=== PATIENT | female | born 1990 | race Caucasian/White ===

== ENCOUNTER 2018-09-02 18:00 | Emergency (ER) | payer MEDICAID ==
[~2018-09-02] VITALS: Ht 162.6 cm; Wt 88.2 kg
[~2018-09-02 18:00] MED LIST: FOLI-49 PO; IBUP-1542 PO; PRENAT PO
[2018-09-02 18:45] VITALS: Ht 162.6 cm; Wt 88.2 kg
--- NOTE | 2018-09-02 22:03 | ERD ---
ER Documentation Chief Complaint Chief Complaint vag bleed since sunday LMP 07/28/18. +abd cramping. HPI Patient is a 25-year-old female, G4, P3, who presents the ER for concerns of vaginal bleeding which started yesterday. Patient states she has pain bleeding only when wiping. Patient denies any blood clot passage. Patient does report mild pelvic pain. Patient denies any dizziness or lightheadedness. Patient denies any fevers or chills. Patient denies any urinary symptoms. Patient denies any nausea or vomiting. Patient states her last menstrual period was on 07-28-18. Patient's DRAW[employer] IN [employer]INE is at the [facility]/ [facility] All systems reviewed and are negative except as per history of present illness. Medications Home Meds Active Scripts Cephalexin* (Keflex*) 500 Mg Capsule, 500 MG PO TID for 7 Days, CAP Prov:DENIS ARMANDO PA-C 09/02/18 Ibuprofen* (Ibuprofen*) 600 Mg Tab, 600 MG PO Q6, #20 1 Refill Prov:HARSHAL ANDRES MD 04/03/15 Reported Medications Folic Acid* (Folic Acid*) 1 Mg Tablet, 1 MG PO DAILY, TAB 03/31/15 Multivit/Min/Fol Ac/Iron/Pren* ( S*) 1 Tab Tab, 1 TAB PO DAILY, TAB 03/31/15 Allergies Allergies: Coded Allergies: No Known Allergy (Verified , 09/10/13) PMhx/Soc History of Surgery: No Anesthesia Reaction: No Hx Neurological Disorder: No Hx Respiratory Disorders: No Hx Cardiac Disorders: No Hx Psychiatric Problems: No Hx Miscellaneous Medical Probl: Yes Hx Alcohol Use: No Hx Substance Use: No Hx Tobacco Use: No Smoking Status: Never smoker FmHx Family History: No diabetes Physical Exam Vitals Vital Signs Date Temp Pulse Resp B/P (MAP) Pulse Ox O2 O2 Flow FiO2 Time Delivery Rate 09/02/18 98.9 77 18 127/64 100 18:45 (85) Physical Exam GENERAL: Well-developed, well-nourished female. Appears in no acute distress. HEAD: Normocephalic, atraumatic. EYES: Pupils are equally reactive bilaterally. EOMs grossly intact. No conjunctival erythema. NECK: Supple. No meningismus. Normal range of motion of the neck. LUNG: Clear to auscultation bilaterally. No rhonchi, wheezing, rales or coarse breath sounds. HEART: Regular rate and rhythm. No murmurs, rubs or gallops. ABDOMEN: Soft, and nondistended. Minimally tender to palpation in the suprapubic region. Positive bowel sounds in all four quadrants. No rebound tenderness, no guarding. (-) McBurney's point tenderness. No CVA tenderness. EXTREMITIES: Equal pulses bilaterally. No peripheral clubbing, cyanosis or edema. No unilateral leg swelling. NEUROLOGIC: Alert and oriented. Moving all four extremities without any difficulty. Normal speech. Steady gait. SKIN: Normal color. Warm and dry. No rashes or lesions. Result Diagram: 09/02/182143 Results 24 hrs Laboratory Tests Test 09/02/18 21:44 White Blood Count 11.0 10^3/ul Red Blood Count 4.34 10^6/ul Hemoglobin 12.8 g/dl Hematocrit 39.8 % Mean Corpuscular Volume 91.7 fl Mean Corpuscular Hemoglobin 29.5 pg Mean Corpuscular Hemoglobin Concent 32.2 g/dl Red Cell Distribution Width 14.1 % Platelet Count 349 10^3/UL Mean Platelet Volume 9.9 fl Immature Granulocytes % 0.500 % Neutrophils % 59.3 % Lymphocytes % 31.5 % Monocytes % 7.1 % Eosinophils % 1.1 % Basophils % 0.5 % Nucleated Red Blood Cells % 0.0 /100WBC Immature Granulocytes # 0.060 10^3/ul Neutrophils # 6.5 10^3/ul Lymphocytes # 3.5 10^3/ul Monocytes # 0.8 10^3/ul Eosinophils # 0.1 10^3/ul Basophils # 0.1 10^3/ul Nucleated Red Blood Cells # 0.0 10^3/ul Urine Color YELLOW Urine Clarity SLIGHTLY CLOUDY Urine pH 5.0 Urine Specific [place] 1.003 Urine Ketones TRACE mg/dL Urine Nitrite NEGATIVE mg/dL Urine Bilirubin NEGATIVE mg/dL Urine Urobilinogen NEGATIVE mg/dL Urine Leukocyte Esterase 1+ Lucero/ul Urine Microscopic RBC 5 /HPF Urine Microscopic WBC 5 /HPF Urine Squamous Epithelial Cells FEW /HPF Urine Bacteria FEW /HPF Urine Mucus FEW /HPF Urine Hemoglobin 3+ mg/dL Urine Glucose NEGATIVE mg/dL Urine Total Protein NEGATIVE mg/dl Beta HCG, Quantitative 55.1 mIU/ml Procedures/MDM ED COURSE: The patient was stable throughout ED course. I kept the patient and/or family informed of laboratory and diagnostic imaging results throughout the ED course. DIAGNOSTIC IMAGING: Read by radiologist. Patient: SHIVA TUBBS : 1990 Age: 28 Sex: F MR #: [id number] DOS: 09/02/182135 Ordering MD: DENIS ARMANDO PA-C Location: FTE Room/Bed: PROCEDURE: US Pelvis/OB. CLINICAL INDICATION: vaginal bleeding , pelvic pain TECHNIQUE: Multiple sonographic images of the pelvis were obtained utilizing a transabdominal and endovaginal technique. The images were reviewed on a PACS w orkstation. COMPARISON: None. FINDINGS: There is a small cystic structure within the endometrium measuring 0.3 cm which would correspond to a calculated gestational age of 4 weeks and 6 days. No pole is yet visualized. There is no yolk sac seen. There is Doppler flow in the ovaries. The right ovary measures 5.5 x 4.2 x 3.2 cm. There is a 3.6 cm simple cyst in the right ovary. The left ovary measures 6.0 x 4.2 x 4.9 cm. There is a 4.3 cm simple cyst in the left ovary. No significant free fluid is present within the pelvis. RPTAT: AA IMPRESSION: Questionable early intrauterine at 4 weeks and 6 days. No pole or yolk sac visualized. Enlarged ovaries with bilateral ovarian cysts. Close followup ultrasound and hCG is recommended. .Lamberto Mcdaniel MD, MD Date Time Electronically viewed and signed by .Lamberto Mcdaniel MD, on 09/02/2018 22:19 .S/ CC: DENIS ARMANDO PA-C [phone] MEDICAL DECISION MAKING: This is a 28-year-old female, G4, P3, who presents the ER for concerns of vaginal spotting and pelvic pain times 2 days.. Vital signs were reviewed. Patient was afebrile. Patient was hemodynamically stable. Quantitative b-HCG was 55. Patient's blood type was noted to be O+, no indication for RhoGam at this time. CBC showed no evidence of systemic infection or severe anemia. UA did show 1+ leukocyte esterase. Pelvic US showed IMPRESSION: Questionable early intrauterine at 4 weeks and 6 days. No pole or yolk sac visualized. Enlarged ovaries with bilateral ovarian cysts. Close followup ultrasound and hCG is recommended. Given these findings, the patients presentation is most consistent with threatened . Low suspicion for ectopic , ruptured ectopic pr egnancy, molar , subchorionic hematoma, spontaneous , incomplete , complete , missed , placental abruption, placental previa, vasa previa, uterine rupture, anembyronic . Patient was nontoxic, urb-cyj-jalaiypoi prior to discharge. Recheck advised in 2 days. Strict ER return precautions given. PRESCRIPTIONS: Keflex DISCHARGE: At this time, patient is stable for discharge and outpatient management. I had a conversation at length with the patient about the concerns of vaginal bleeding during the 1st trimester of . Patient and/or family understands that her vaginal bleeding can be a normal finding or a sign of miscarriage. I have instructed the patient to follow-up with her OBGYN in 1-2 days for further monitoring including a repeat b-HCG level. I have instructed the patient to promptly return to the ER at any time for any new or worsening symptoms including increased pain, nausea, vomiting, continued bleeding, weakness, syncop e or fever. The patient and/or family expressed understanding of and agreement with this plan. All questions were answered. Home care instructions were provided. Disclaimer: Inadvertent spelling and grammatical errors are likely due to EHR/dictation software use and do not reflect on the overall quality of patient care. Also, please note that the electronic time recorded on this note does not necessarily reflect the actual time of the patient encounter. Departure Diagnosis: Primary Impression: Vaginal bleeding in patient at less than 20 weeks ges... Additional Impression: UTI (urinary tract infection) Condition: Fair Patient Instructions: Bleeding During Early Referrals: COMMUNITY CLINICS YOU HAVE RECEIVED A MEDICAL SCREENING EXAM AND THE RESULTS INDICATE THAT YOU DO NOT HAVE A CONDITION THAT REQUIRES URGENT TREATMENT IN THE EMERGENCY DEPARTMENT. FURTHER EVALUATION AND TREATMENT OF YOUR CONDITION CAN WAIT UNTIL YOU ARE SEEN IN YOUR DOCTORS OFFICE WITHIN THE NEXT 1-2 DAYS. IT IS YOUR RESPONSIBILITY TO MAKE AN APPOINTMENT FOR FOLOW-UP CARE. IF YOU HAVE A PRIMARY DOCTOR --you should call your primary doctor and schedule an appointment IF YOU DO NOT HAVE A PRIMARY DOCTOR YOU CAN CALL OUR PHYSICIAN REFERRAL HOTLINE AT IF YOU CAN NOT AFFORD TO SEE A PHYSICIAN YOU CAN CHOSE FROM THE FOLLOWING [facility] [address] [facility]. [facility] [address] [facility]. [facility] [address] [facility] [address] [facility]. [facility] [address] [facility]. [facility] [address] [facility]. [facility] YOU HAVE RECEIVED A MEDICAL SCREENING EXAM AND THE RESULTS INDICATE THAT YOU DO NOT HAVE A CONDITION THAT REQUIRES URGENT TREATMENT IN THE EMERGENCY DEPARTMENT. FURTHER EVALUATION AND TREATMENT OF YOUR CONDITION CAN WAIT UNTIL YOU ARE SEEN IN YOUR DOCTORS OFFICE WITHIN THE NEXT 1-2 DAYS. IT IS YOUR RESPONSIBILITY TO MAKE AN APPOINTMENT FOR FOLOW-UP CARE. IF YOU HAVE A PRIMARY DOCTOR --you should call your primary doctor and schedule and appointment IF YOU DO NOT HAVE A PRIMARY DOCTOR YOU CAN CALL OUR PHYSICIAN REFERRAL HOTLINE AT . IF YOU CAN NOT AFFORD TO SEE A PHYSICIAN YOU CAN CHOSE FROM THE FOLLOWING [facility]: [facility] [address] [place] [address] [facility] [address] [place] [address] FOR[facility] + [facility] [address] [place] [address] [employer] [place] [address] [facility] [address] [place] [address] OFFICE FAX RINA [address] [address] [address] [facility] [address] [place] [address] DR ORDOÑEZ, HESHMAT [address] [facility], [address] [address] [address] COOK, [facility] [address] [facility], [place] [address] [facility] [address] [place] [address] [address] [facility] [address] - [address] ALCARAZ, LAURA [address], [facility] [address] [address] LOUIE, JAY [address] [facility]. [address], [facility] [address] [address] MOONEY, FARID [address] [place], [place] [id number] Additional Instructions: Se volvi a consultar en 2 shahid. regresa aqui. Llame al doctor MAANA y priscilla yusra DON PARA DENTRO DE 1-2 GRIMM.Dgale a la secretaria que nosotros le instruimos hacer esta don.Avise o llame si chou condicin se empeora antes de la don. Regresa aqui si peor o no mejor. DENIS ARMANDO PA-C Sep 02, 2018 22:03
[2018-09-02] MEDS ORDERED: CEPH-443 PO (23:05)
[2018-09-02 23:19] VITALS: BP 121/69; PULSE 77; RESP 20
== END 2018-09-02 23:20 | disposition home or self-care (01) ==
LOC: FTE 18:00
DX: O20.9 Hemorrhage in early pregnancy, unspecified (principal); O23.41 Unspecified infection of urinary tract in pregnancy, first trimester; Z3A.01 Less than 8 weeks gestation of pregnancy
CPT/HCPCS: 36415; 76801; 76817; 81001; 84702; 85025; 86900; 86901; Z7502

== ENCOUNTER 2018-09-10 15:20 | Emergency (ER) | payer MEDICAID ==
[~2018-09-10] VITALS: Ht 154.9 cm; Wt 87.0 kg
[~2018-09-10 15:20] MED LIST changes: +CEPH-443 PO
[2018-09-10 15:23] VITALS: Ht 154.9 cm; Wt 87.0 kg
--- NOTE | 2018-09-10 18:55 | ERD ---
ER Documentation Chief Complaint Chief Complaint RIGHT PELVIC PAIN & VAGINAL BLEEDING, PT DOESN'T KNOW IF SHE IS HPI 28-year-old female with suprapubic pain and vaginal bleeding for last day. Last menstrual. Approximately 6 weeks ago. She states she had a positive test at home. She is a potential G6 para 4. Denies any right-sided abdominal pain, vomiting, fevers. ROS All systems reviewed and are negative except as per history of present illness. Medications Home Meds Active Scripts Cephalexin* (Keflex*) 500 Mg Capsule, 500 MG PO TID for 7 Days, CAP Prov:DENIS ARMANDO PA-C 09/02/18 Ibuprofen* (Ibuprofen*) 600 Mg Tab, 600 MG PO Q6, #20 1 Refill Prov:HARSHAL ANDRES MD 04/03/15 Reported Medications Folic Acid* (Folic Acid*) 1 Mg Tablet, 1 MG PO DAILY, TAB 03/31/15 Multivit/Min/Fol Ac/Iron/Pren* ( S*) 1 Tab Tab, 1 TAB PO DAILY, TAB 03/31/15 Allergies Allergies: Coded Allergies: No Known Allergy (Verified , 09/10/18) PMhx/Soc Medical and Surgical Hx: pt denies Medical Hx, pt denies Surgical Hx History of Surgery: No Anesthesia Reaction: No Hx Neurological Disorder: No Hx Respiratory Disorders: No Hx Cardiac Disorders: No Hx Psychiatric Problems: No Hx Miscellaneous Medical Probl: Yes Hx Alcohol Use: No Hx Substance Use: No Hx Tobacco Use: No FmHx Family History: No diabetes, No coronary disease, No other Physical Exam Vitals Vital Signs Date Temp Pulse Resp B/P (MAP) Pulse Ox O2 O2 Flow FiO2 Time Delivery Rate 09/10/18 100.5 75 18 136/63 97 15:23 (87) Physical Exam Const: No acute distress Head: Atraumatic Eyes: Normal Conjunctiva ENT: Normal External Ears, Nose and Mouth. Neck: Full range of motion. No meningismus. Resp: Clear to auscultation bilaterally Cardio: Regular rate and rhythm, no murmurs Abd: Soft, mild suprapubic tenderness. No tenderness McBurney's point no Ansari sign. No rebound. Non distended. Normal bowel sounds Skin: No petechiae or rashes Back: No midline or flank tenderness Ext: No cyanosis, or edema Neur: Awake and alert Psych: Normal Mood and Affect Result Diagram: 09/10/18 1705 Results 24 hrs Laboratory Tests Test 09/10/18 17:05 09/10/18 17:15 White Blood Count 9.5 10^3/ul Red Blood Count 4.35 10^6/ul Hemoglobin 12.9 g/dl Hematocrit 39.4 % Mean Corpuscular Volume 90.6 fl Mean Corpuscular Hemoglobin 29.7 pg Mean Corpuscular Hemoglobin Concent 32.7 g/dl Red Cell Distribution Width 13.7 % Platelet Count 382 10^3/UL Mean Platelet Volume 9.8 fl Immature Granulocytes % 0.500 % Neutrophils % 60.3 % Lymphocytes % 30.9 % Monocytes % 5.8 % Eosinophils % 2.1 % Basophils % 0.4 % Nucleated Red Blood Cells % 0.0 /100WBC Immature Granulocytes # 0.050 10^3/ul Neutrophils # 5.7 10^3/ul Lymphocytes # 2.9 10^3/ul Monocytes # 0.6 10^3/ul Eosinophils # 0.2 10^3/ul Basophils # 0.0 10^3/ul Nucleated Red Blood Cells # 0.0 10^3/ul Urine Color YELLOW Urine Clarity CLEAR Urine pH 7.0 Urine Specific [place] 1.018 Urine Ketones NEGATIVE mg/dL Urine Nitrite NEGATIVE mg/dL Urine Bilirubin NEGATIVE mg/dL Urine Urobilinogen NEGATIVE mg/dL Urine Leukocyte Esterase TRACE [place]/ul Urine Microscopic RBC 2 /HPF Urine Microscopic WBC 1 /HPF Urine Squamous Epithelial Cells FEW /HPF Urine Hemoglobin NEGATIVE mg/dL Urine Glucose NEGATIVE mg/dL Urine Total Protein NEGATIVE mg/dl Beta HCG, Quantitative < 2.4 mIU/ml POC Beta HCG, Qualitative NEGATIVE Procedures/MDM Pelvic ultrasound shows no intrauterine and no adnexal masses. Quantitative hCG is undetectable. CBC is normal. Patient presents with vaginal bleeding and suprapubic pain without evidence of today. It may be a delayed normal . Current signs or symptoms do not suggest appendicitis, acute abdomen. Doubt PID, tubo-ovarian abscess, and no evidence of ectopic . She will be treated with ibuprofen, further observation at home and return precautions. She will return the next day for fevers, worsening pain, new worsening symptoms with primary care doctor this week. The patient was stable with no new complaints during the ER course. Clinically, there is no current evidence to suggest meningitis, sepsis, acute abdomen, pneumonia, stroke, acute coronary syndrome, pulmonary embolism, aortic dissection or any other emergent condition appearing to require further evaluation or hospitalization. Patient counseled regarding my diagnostic impression and care plan. Prior to discharge all questions answered. Pt agrees with treatment plan and understands strict return precautions. Pt is instructed to follow up with primary care provider within 24-48 hours. Precautionary instructions provided including instructions to return to the ER if not improving or for any worsening or changing symptoms or concerns. Departure Diagnosis: Primary Impression: Vaginal bleeding Condition: Stable Patient Instructions: Dysfunctional Uterine Bleeding Referrals: NO PRIMARY,CARE PHYSICIAN (PCP) Additional Instructions: no esta emarazada. probablamente un kimber que esta leugo. . Cheque otro vez con chou doctor primario en el proximo adorno or regresa para mas o nueva simptomas- fiebre , vomito , mas dolor.. CHAO COOK MD Sep 10, 2018 18:55
[2018-09-10 18:59] VITALS: BP 120/56; PULSE 70; RESP 16
== END 2018-09-10 19:00 | disposition home or self-care (01) ==
LOC: FTE 15:20
DX: N93.9 Abnormal uterine and vaginal bleeding, unspecified (principal)
CPT/HCPCS: 36415; 76801; 81001; 81025; 84702; 85025; 86900; 86901; Z7502